=== PATIENT | female | born 1950 | race Two or more races ===

== ENCOUNTER 2018-01-28 11:41 | Emergency (ER) | payer MEDICAID, MEDICARE ==
--- NOTE | 2018-01-28 12:13 | EDM.PDOC ---
ED HPI GENERAL MEDICAL PROBLEM - General Stated Complaint: HEAD ACHE Time Seen by Provider: 01/28/18 11:45 Source of Information: Reports: Patient, Family History Limitations: Reports: No Limitations - History of Present Illness INITIAL COMMENTS - FREE TEXT/NARRATIVE: 67 y.o.hs female with ESRD due to HTN and DM, came to the ed due to headache at her right forehead, which started after her HD. 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 No N/V/D no Dizziness or any other acute medical issues. 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 - Related Data Allergies Allergy/AdvReac Type Severity Reaction Status Date / Time No Known Allergies Allergy Verified 01/28/18 12:16 Home Meds: Home Meds Aspirin [Halfprin] 81 mg PO DAILY 01/28/18 [History] Diltiazem HCl [Cardizem] 30 mg PO Q8H 01/28/18 [History] Glimepiride 4 mg PO WITHBREAKFAST 01/28/18 [History] Levothyroxine Sodium [Levoxyl] 100 mcg PO DAILY 01/28/18 [History] Pioglitazone HCl [Actos] 30 mg PO DAILY 01/28/18 [History] atorvaSTATin Calcium [Atorvastatin Calcium] 20 mg PO BEDTIME 01/28/18 [History] tiZANidine [Zanaflex] 4 mg PO TID 01/28/18 [History] ED ROS GENERAL - Review of Systems Review Of Systems: See Below Constitutional: Reports: No Symptoms HEENT: Reports: No Symptoms, Other (blind right eye for many years) Respiratory: Reports: No Symptoms Cardiovascular: Reports: No Symptoms Endocrine: Reports: No Symptoms GI/Abdominal: Reports: No Symptoms : Reports: Other (ESRD, does not make urine) Musculoskeletal: Reports: No Symptoms Skin: Reports: No Symptoms Neurological: Reports: Headache (right forehead) Psychiatric: Reports: No Symptoms Hematologic/Lymphatic: Reports: No Symptoms Immunologic: Reports: No Symptoms - Physical Exam Exam: See Below Exam Limited By: No Limitations General Appearance: Alert, WD/WN, Mild Distress Eye Exam: Right Eye: Other (blind right eye for many years) Ears: Normal External Exam Nose: Normal Inspection, Normal Mucosa, No Blood Throat/Mouth: Normal Lips, Normal Voice, No Airway Compromise Head Exam: Atraumatic, Normocephalic Neck: Normal Inspection, Supple, Non-Tender, Full Range of Motion Respiratory/Chest: No Respiratory Distress, Lungs Clear, Normal Breath Sounds Cardiovascular: Normal Peripheral Pulses, Regular Rate, Rhythm, No Edema, No Rub GI/Abdominal: Normal Bowel Sounds, Soft, Non-Tender, No Organomegaly, No Abnormal Bruit, No Mass, Pelvis Stable (Female) Exam: Deferred Rectal (Female) Exam: Deferred Neuro Exam (Abbreviated): Alert, Oriented, CN II-XII Intact, Normal Cognition Back Exam: Normal Inspection, Full Range of Motion Extremities: Normal Range of Motion, Non-Tender, No Pedal Edema, Normal Capillary Refill, Other (AV shunt right upper extremity) Skin Exam: Warm, Dry, Intact, Normal Color, No Rash, Other (AV shunt right upper extremity) Course - Vital Signs Text/Narrative:: 67 y.o.hs female with ESRD due to HTN and DM, came to the ed due to headache at her right forehead, which started after her HD. 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 No N/V/D no Dizziness or any other acute medical issues. BP 141/63 RR 18, Pulse ox 98% on RA Temp 36.9 Impression: Tension H/A. H/O ESRD, on HD Tx: Toradol Reexam: Pain free Plan: D/C with instructions Last Recorded V/S: Last Vital Signs Temp 36.8 C 01/28/18 12:15 Pulse Resp 17 01/28/18 12:57 BP 138/62 01/28/18 12:57 Pulse Ox 100 01/28/18 12:57 - Orders/Labs/Meds Meds: Medications Discontinued Medications Generic Name Dose Route Start Last Admin Trade Name Freq PRN Reason Stop Dose Admin Ketorolac Tromethamine 30 mg 01/28/18 12:15 06/26/18 12:26 Toradol IM 01/28/18 12:16 30 mg ONETIME STA Administration Departure - Departure Time of Disposition: 13:06 Disposition: Home, Self-Care 01 Condition: Good Clinical Impression: Tension headache - Discharge Information Instructions: Tension Headache, Adult, [id number] Referrals: PCP,Not In Area [Primary Care Provider] - Forms: ED Department Discharge Additional Instructions: Please take tylenol/motrin for pain, please f/u with your PMD, come back if your symptoms get worse acutely.
[2018-01-28] MEDS ORDERED: Ketorolac 60 MG/2 ML SDV IM STA (12:15)
== END 2018-01-28 13:13 | disposition home or self-care (01) ==
LOC: FB.ED 11:41
DX: G44.209 Tension-type headache, unspecified, not intractable (principal); E11.22 Type 2 diabetes mellitus with diabetic chronic kidney disease; I12.0 Hypertensive chronic kidney disease with stage 5 chronic kidney disease or end stage renal disease; N18.6 End stage renal disease; Z79.82 Long term (current) use of aspirin; Z79.899 Other long term (current) drug therapy; Z79.84 Long term (current) use of oral hypoglycemic drugs
CPT/HCPCS: 96372; 99283; J1885